=== PATIENT | female | born 1975 | race Caucasian/White ===

== ENCOUNTER → 2017-04-08 | Outpatient (CLI) | payer BC ==
[2015-07-03 13:21] VITALS: BP 160/91
[~2017-04-08] MED LIST: ABILIFY 10MG TA10 MG PO; ALBUTEROL2.5 MG/3 M IH; CEFTIN250 M1 PO; CITALOPRAM40 MG PO; LITHIUM 30300 MG/CAP PO; NORCO 325 MG-51 TAB PO; TUSS PO; ZITHROMAX 250M250 MG PO
== END ==
LOC: LAB 14:24 → RAD 14:24
DX: R05 Cough (principal); R06.09 Other forms of dyspnea

== ENCOUNTER → 2017-09-13 | Outpatient (CLI) | payer BC ==
[2015-07-03 13:21] VITALS: BP 160/91
[2017-09-13 09:04] LABS: EOS # 0.2 (0.04-0.40); HEMATOCRIT 41.9 % (37.0-47.0); HEMOGLOBIN 13.7 g/dL (12.5-16.0); LYMPH# 1.9 (1.50-4.00); MEAN CELL VOLUME 86 fl (78-100); MEAN CORPUSCULAR HEMOGLOBIN 28 pg (27-31); MEAN CORPUSCULAR HGB CONC 33 g/dL (33-37); MONO # 0.6 (0.20-0.80); NEU # 6.2 (1.40-6.50); PLATELET COUNT 311 K/mm3 (130-400); RED BLOOD COUNT 4.85 M/mm3 (4.10-5.30); RED CELL DISTRIBUTION WIDTH 13.2 % (11.5-14.5)
[2017-09-13 09:09] LABS: ALBUMIN 4.2 g/dL (3.5-5.0); BUN/CREATININE RATIO 14.2 (6.0-26.0); CALCIUM 8.8 mg/dL (8.4-10.2); POTASSIUM 4.7 mmol/L (3.6-5.0); TOTAL BILIRUBIN 0.6 mg/dL (0.2-1.3); TOTAL PROTEIN 7.5 g/dL (6.3-8.2)
[2017-09-13 10:49] LABS: URINE APPEARANCE CLOUDY; URINE COLOR YELLOW
[2017-09-13 10:50] LABS: URINE BILIRUBIN NEGATIVE (NEGATIVE); URINE BLOOD 50 ery/uL (NEGATIVE); URINE GLUCOSE NEGATIVE (NEGATIVE); URINE KETONE NEGATIVE (NEGATIVE); URINE NITRATE NEGATIVE (NEGATIVE); URINE PROTEIN(semi-quant) TRACE mg/dL (NEGATIVE); URINE UROBILINOGEN NORMAL (NORMAL)
[2017-09-13 10:52] LABS: URINE LEUKOCYTE ESTERASE TRACE (NEGATIVE)
== END ==
LOC: LAB 08:44
PROVIDERS: Nurse Practitioner Family
DX: R30.0 Dysuria (principal); R03.0 Elevated blood-pressure reading, without diagnosis of hypertension; Z88.1 Allergy status to other antibiotic agents

== ENCOUNTER → 2018-05-07 | Outpatient (CLI) | payer BC ==
[2015-07-03 13:21] VITALS: BP 160/91
[2018-05-07 14:44] LABS: EOS # 0.1 (0.04-0.40); EOS % 1.5 % (1.0-5.0); HEMATOCRIT 43.5 % (37.0-47.0); HEMOGLOBIN 13.8 g/dL (12.5-16.0); LYMPH# 2.5 (1.50-4.00); MEAN CELL VOLUME 86 fl (78-100); MEAN CORPUSCULAR HEMOGLOBIN 27 pg (27-31); MEAN CORPUSCULAR HGB CONC 32 g/dL (33-37); MEAN PLATELET VOLUME 10.3 fl (7.4-10.4); MONO # 0.9 (0.20-0.80); NEU # 5.6 (1.40-6.50); PLATELET COUNT 316 K/mm3 (130-400); RED BLOOD COUNT 5.09 M/mm3 (4.10-5.30); RED CELL DISTRIBUTION WIDTH 13.7 % (11.5-14.5); WHITE BLOOD COUNT 9.2 K/mm3 (4.8-10.8)
[2018-05-07 15:34] LABS: URINE APPEARANCE CLOUDY; URINE BILIRUBIN NEGATIVE (NEGATIVE); URINE BLOOD 250 ery/uL (NEGATIVE); URINE COLOR YELLOW; URINE GLUCOSE NEGATIVE (NEGATIVE); URINE KETONE NEGATIVE (NEGATIVE); URINE LEUKOCYTE ESTERASE 1+ (NEGATIVE); URINE NITRATE NEGATIVE (NEGATIVE); URINE PROTEIN(semi-quant) TRACE mg/dL (NEGATIVE); URINE UROBILINOGEN NORMAL (NORMAL)
[2018-05-07 15:38] LABS: ALBUMIN 4.3 g/dL (3.5-5.0); BUN/CREATININE RATIO 10.8 (6.0-26.0); CALCIUM 8.8 mg/dL (8.4-10.2); POTASSIUM 3.9 mmol/L (3.6-5.0); TOTAL BILIRUBIN 0.5 mg/dL (0.2-1.3); TOTAL PROTEIN 7.6 g/dL (6.3-8.2)
== END ==
LOC: LAB 14:23
PROVIDERS: Physician Assistant
DX: R10.11 Right upper quadrant pain (principal)

== ENCOUNTER → 2018-07-04 | Outpatient (CLI) | payer BC ==
[2015-07-03 13:21] VITALS: BP 160/91
== END ==
LOC: RAD 16:19
DX: M77.32 Calcaneal spur, left foot (principal); M77.31 Calcaneal spur, right foot

== ENCOUNTER → 2018-09-17 | Outpatient (CLI) | payer BC ==
[2015-07-03 13:21] VITALS: BP 160/91
[2018-09-17 09:42] LABS: EOS # 0.2 (0.04-0.40); HEMATOCRIT 43.8 % (37.0-47.0); LYMPH# 2.2 (1.50-4.00); MEAN CELL VOLUME 86 fl (78-100); MEAN CORPUSCULAR HEMOGLOBIN 27 pg (27-31); MEAN CORPUSCULAR HGB CONC 32 g/dL (33-37); MEAN PLATELET VOLUME 10.2 fl (7.4-10.4); MONO # 0.6 (0.20-0.80); NEU # 6.9 (1.40-6.50); PLATELET COUNT 328 K/mm3 (130-400); RED BLOOD COUNT 5.11 M/mm3 (4.10-5.30); RED CELL DISTRIBUTION WIDTH 13.8 % (11.5-14.5); WHITE BLOOD COUNT 9.9 K/mm3 (4.8-10.8)
[2018-09-17 09:46] LABS: URINE APPEARANCE CLOUDY; URINE BILIRUBIN NEGATIVE (NEGATIVE); URINE BLOOD 50 ery/uL (NEGATIVE); URINE COLOR YELLOW; URINE GLUCOSE NEGATIVE (NEGATIVE); URINE KETONE NEGATIVE (NEGATIVE); URINE LEUKOCYTE ESTERASE 1+ (NEGATIVE); URINE MUCUS PRESENT (NOT PRESENT); URINE NITRATE NEGATIVE (NEGATIVE); URINE PROTEIN(semi-quant) TRACE mg/dL (NEGATIVE); URINE UROBILINOGEN NORMAL (NORMAL)
[2018-09-17 09:48] LABS: ALBUMIN 4.7 g/dL (3.5-5.0); CALCIUM 9.5 mg/dL (8.4-10.2); TOTAL PROTEIN 8.2 g/dL (6.3-8.2)
== END ==
LOC: LAB 09:20
PROVIDERS: Physician Assistant
DX: T21.20XA Burn of second degree of trunk, unspecified site, initial encounter (principal); R35.0 Frequency of micturition; R63.1 Polydipsia; I10 Essential (primary) hypertension; E66.9 Obesity, unspecified; F98.8 Other specified behavioral and emotional disorders with onset usually occurring in childhood and adolescence

== ENCOUNTER → 2020-02-04 | Outpatient (CLI) | payer BC ==
[2015-07-03 13:21] VITALS: BP 160/91
[2020-02-04 15:44] LABS: EOS # 0.1 (0.04-0.40); EOS % 0.7 % (1.0-5.0); HEMATOCRIT 43.1 % (37.0-47.0); HEMOGLOBIN 13.7 g/dL (12.5-16.0); MEAN CELL VOLUME 90 fl (78-100); MEAN CORPUSCULAR HEMOGLOBIN 29 pg (27-31); MEAN CORPUSCULAR HGB CONC 32 g/dL (33-37); MONO # 1.1 (0.20-0.80); NEU # 8.3 (1.40-6.50); PLATELET COUNT 316 K/mm3 (130-400); RED BLOOD COUNT 4.77 M/mm3 (4.10-5.30); RED CELL DISTRIBUTION WIDTH 13.6 % (11.5-14.5); WHITE BLOOD COUNT 14.3 K/mm3 (4.8-10.8)
[2020-02-04 15:47] LABS: LYMPH# 4.8 (1.50-4.00)
[2020-02-04 15:50] LABS: POTASSIUM 3.7 mmol/L (3.5-5.1)
[2020-02-04 15:51] LABS: CALCIUM 8.9 mg/dL (8.3-10.5)
[2020-02-04 15:52] LABS: TOTAL PROTEIN 6.9 g/dL (6.4-8.3)
[2020-02-04 15:54] LABS: TOTAL BILIRUBIN 0.6 mg/dL (0.2-1.2)
== END ==
LOC: RAD 15:24
PROVIDERS: Physician Assistant
DX: J45.20 Mild intermittent asthma, uncomplicated (principal)
CPT/HCPCS: Q9967

== ENCOUNTER → 2020-03-22 | Outpatient (CLI) | payer BC ==
[2015-07-03 13:21] VITALS: BP 160/91
[2020-03-22 16:13] LABS: EOS # 0.2 (0.04-0.40); EOS % 1.7 % (1.0-5.0); HEMATOCRIT 42.5 % (37.0-47.0); HEMOGLOBIN 13.4 g/dL (12.5-16.0); LYMPH# 1.9 (1.50-4.00); MEAN CELL VOLUME 90 fl (78-100); MEAN CORPUSCULAR HEMOGLOBIN 28 pg (27-31); MEAN CORPUSCULAR HGB CONC 32 g/dL (33-37); MONO # 0.7 (0.20-0.80); NEU # 6.7 (1.40-6.50); PLATELET COUNT 324 K/mm3 (130-400); RED BLOOD COUNT 4.72 M/mm3 (4.10-5.30); RED CELL DISTRIBUTION WIDTH 13.2 % (11.5-14.5); WHITE BLOOD COUNT 9.5 K/mm3 (4.8-10.8)
== END ==
LOC: LAB 15:44
PROVIDERS: Internal Medicine Pulmonary Disease
DX: R05 Cough (principal)

== ENCOUNTER → 2020-04-27 | Outpatient (CLI) | payer BC ==
[2015-07-03 13:21] VITALS: BP 160/91
[2020-04-27 08:53] LABS: EOS # 0.1 (0.04-0.40); EOS % 1.6 % (1.0-5.0); HEMATOCRIT 40.1 % (37.0-47.0); HEMOGLOBIN 12.6 g/dL (12.5-16.0); MEAN CELL VOLUME 90 fl (78-100); MEAN CORPUSCULAR HEMOGLOBIN 28 pg (27-31); MEAN CORPUSCULAR HGB CONC 31 g/dL (33-37); MEAN PLATELET VOLUME 10.1 fl (7.4-10.4); MONO # 0.6 (0.20-0.80); NEU # 5.9 (1.40-6.50); PLATELET COUNT 305 K/mm3 (130-400); RED BLOOD COUNT 4.47 M/mm3 (4.10-5.30); WHITE BLOOD COUNT 8.6 K/mm3 (4.8-10.8)
[2020-04-27 08:57] LABS: ALBUMIN 3.9 g/dL (3.5-5.0)
[2020-04-27 09:00] LABS: TOTAL PROTEIN 7.5 g/dL (6.4-8.3)
[2020-04-27 09:01] LABS: TOTAL BILIRUBIN 0.6 mg/dL (0.2-1.2)
== END ==
LOC: LAB 08:31
PROVIDERS: Physician Assistant
DX: K90.41 Non-celiac gluten sensitivity (principal); K90.9 Intestinal malabsorption, unspecified; I10 Essential (primary) hypertension; K58.9 Irritable bowel syndrome, unspecified; E78.5 Hyperlipidemia, unspecified; J45.20 Mild intermittent asthma, uncomplicated; R19.7 Diarrhea, unspecified; R21 Rash and other nonspecific skin eruption; Z83.49 Family history of other endocrine, nutritional and metabolic diseases

== ENCOUNTER → 2020-06-01 | Outpatient (CLI) | payer BC ==
[2015-07-03 13:21] VITALS: BP 160/91
== END ==
LOC: VAS 15:38 → RAD 15:45
DX: R06.02 Shortness of breath (principal)

== ENCOUNTER → 2020-07-05 | Outpatient (CLI) | payer BC ==
[2015-07-03 13:21] VITALS: BP 160/91
== END ==
LOC: MAMMO 08:30
DX: Z01.419 Encounter for gynecological examination (general) (routine) without abnormal findings (principal); Z12.31 Encounter for screening mammogram for malignant neoplasm of breast

== ENCOUNTER → 2020-11-07 | Outpatient (CLI) | payer BC ==
[2015-07-03 13:21] VITALS: BP 160/91
[~2020-11-07] MED LIST changes: +ADDERALL 20 MG20 MG PO; +ASPIRIN E.C. 8181 MG; +ATROVENT NASAL15 ML NS; +COZAAR25 M1 PO; +DUPIXENT P300 MG/2 M SQ; +DYAZIDE 37.5-21 EACH PO; +EPINEPHRIN0.15 MG/01 IJ; +FLAGYL500 M1 PO; +FLUTICASON0.05 MG/AC NS; +NORCO 325 MG-51 TA1 PO; +PRILOSEC 20MG20 MG PO; +PROAIR HFA0.09 MG/AC IH; +QVAR REDIHALE10.6 G1 IH; +SINGULAIR 110 MG/TAB PO; +SYMBICORT1 AE3 IH; +VALIUM 5MG T5 MG/TAB PO; +WELLBUTRIN XL150 M2 PO
== END ==
LOC: RAD 17:56
DX: M25.561 Pain in right knee (principal)

== ENCOUNTER 2020-11-16 11:52 | Emergency (ER) | payer BC ==
[~2020-11-16] VITALS: Ht 160 cm; Wt 97.3 kg
[~2020-11-16 11:52] MED LIST changes: -ADDERALL 20 MG20 MG PO; -ASPIRIN E.C. 8181 MG; -ATROVENT NASAL15 ML NS; -COZAAR25 M1 PO; -DUPIXENT P300 MG/2 M SQ; -DYAZIDE 37.5-21 EACH PO; -EPINEPHRIN0.15 MG/01 IJ; -FLAGYL500 M1 PO; -FLUTICASON0.05 MG/AC NS; -NORCO 325 MG-51 TA1 PO; -PRILOSEC 20MG20 MG PO; -PROAIR HFA0.09 MG/AC IH; -QVAR REDIHALE10.6 G1 IH; -SINGULAIR 110 MG/TAB PO; -SYMBICORT1 AE3 IH; -VALIUM 5MG T5 MG/TAB PO; -WELLBUTRIN XL150 M2 PO
[2020-11-16] MEDS ORDERED: ADDERALL 20 MG20 MG PO (13:04)
[2020-11-16] MEDS ORDERED: ALBUTEROL2.5 MG/3 M IH (13:05)
[2020-11-16] MEDS ORDERED: PROAIR HFA0.09 MG/AC IH (13:05)
[2020-11-16] MEDS ORDERED: FLUTICASON0.05 MG/AC NS (13:06)
[2020-11-16] MEDS ORDERED: ASPIRIN E.C. 8181 MG (13:07)
[2020-11-16] MEDS ORDERED: WELLBUTRIN XL150 M2 PO (13:07)
[2020-11-16] MEDS ORDERED: DYAZIDE 37.5-21 EACH PO (13:08)
[2020-11-16] MEDS ORDERED: DUPIXENT P300 MG/2 M SQ (13:08)
[2020-11-16] MEDS ORDERED: EPINEPHRIN0.15 MG/01 IJ (13:10)
[2020-11-16] MEDS ORDERED: NORCO 325 MG-51 TA1 PO (13:11)
[2020-11-16 13:12] LABS: EOS # 0.1 (0.04-0.40); EOS % 0.7 % (1.0-5.0); HEMATOCRIT 45.8 % (37.0-47.0); HEMOGLOBIN 14.6 g/dL (12.5-16.0); LYMPH# 1.7 (1.50-4.00); MEAN CELL VOLUME 87 fl (78-100); MEAN CORPUSCULAR HEMOGLOBIN 28 pg (27-31); MEAN CORPUSCULAR HGB CONC 32 g/dL (33-37); MEAN PLATELET VOLUME 10.5 fl (7.4-10.4); MONO # 0.8 (0.20-0.80); NEU # 7.8 (1.40-6.50); PLATELET COUNT 310 K/mm3 (130-400); RED BLOOD COUNT 5.28 M/mm3 (4.10-5.30); RED CELL DISTRIBUTION WIDTH 13.4 % (11.5-14.5); WHITE BLOOD COUNT 10.4 K/mm3 (4.8-10.8)
[2020-11-16] MEDS ORDERED: ATROVENT NASAL15 ML NS (13:12)
[2020-11-16] MEDS ORDERED: PRILOSEC 20MG20 MG PO (13:13)
[2020-11-16] MEDS ORDERED: QVAR REDIHALE10.6 G1 IH (13:13)
[2020-11-16] MEDS ORDERED: SINGULAIR 110 MG/TAB PO (13:13)
[2020-11-16] MEDS ORDERED: COZAAR25 M1 PO (13:13)
[2020-11-16] MEDS ORDERED: SYMBICORT1 AE3 IH (13:14)
[2020-11-16] MEDS ORDERED: VALIUM 5MG T5 MG/TAB PO (13:14)
[2020-11-16 13:21] LABS: ALBUMIN 4.5 g/dL (3.5-5.0); POTASSIUM 3.9 mmol/L (3.5-5.1); SODIUM 138 mmol/L (136-145)
[2020-11-16 13:23] LABS: CALCIUM 9.2 mg/dL (8.3-10.5)
[2020-11-16 13:24] LABS: GLUCOSE 108 mg/dL (65-105); TOTAL PROTEIN 8.3 g/dL (6.4-8.3)
[2020-11-16 13:25] LABS: CARBON DIOXIDE 23 mmol/L (22-29)
[2020-11-16 13:26] LABS: TOTAL BILIRUBIN 1.2 mg/dL (0.2-1.2)
[2020-11-16 13:29] LABS: AST-SGOT 13 U/L (5-34)
[2020-11-16 13:30] LABS: ALT/SGPT 20 U/L (0-55)
[2020-11-16 13:36] LABS: D-DIMER 0.24 mg/L FEU (0.15-0.50)
[2020-11-16 13:54] LABS: TROPONIN-I < 0.03 ng/mL (<0.030)
[2020-11-16 14:43] LABS: PH-URINE 6.5 (5.0 - 8.0); URINE APPEARANCE CLOUDY; URINE BILIRUBIN NEGATIVE (NEGATIVE); URINE BLOOD 50 ery/uL (NEGATIVE); URINE COLOR YELLOW; URINE GLUCOSE NEGATIVE (NEGATIVE); URINE KETONE NEGATIVE (NEGATIVE); URINE LEUKOCYTE ESTERASE 1+ (NEGATIVE); URINE NITRATE NEGATIVE (NEGATIVE); URINE PROTEIN(semi-quant) TRACE mg/dL (NEGATIVE); URINE UROBILINOGEN NORMAL (NORMAL)
[2020-11-16 14:44] LABS: URINE MUCUS PRESENT (NOT PRESENT)
[2020-11-16] MEDS ORDERED: FLAGYL500 M1 PO (15:50)
[2020-11-16 16:15] VITALS: BP 146/86
== END 2020-11-16 16:15 | disposition home or self-care (01) ==
LOC: ED 11:52
PROVIDERS: Physician Assistant
DX: F41.9 Anxiety disorder, unspecified (principal); N76.0 Acute vaginitis; I10 Essential (primary) hypertension; J45.909 Unspecified asthma, uncomplicated; F32.9 Major depressive disorder, single episode, unspecified; F90.9 Attention-deficit hyperactivity disorder, unspecified type; Z88.8 Allergy status to other drugs, medicaments and biological substances; Z79.51 Long term (current) use of inhaled steroids; Z79.82 Long term (current) use of aspirin
CPT/HCPCS: Q9967

== ENCOUNTER → 2021-08-09 | Outpatient (CLI) | payer BC ==
[~2021-08-09] MED LIST changes: +ADDERALL 20 MG20 MG PO; +ASPIRIN E.C. 8181 MG; +ATROVENT NASAL15 ML NS; +COZAAR25 M1 PO; +DUPIXENT P300 MG/2 M SQ; +DYAZIDE 37.5-21 EACH PO; +EPINEPHRIN0.15 MG/01 IJ; +FLAGYL500 M1 PO; +FLUTICASON0.05 MG/AC NS; +NORCO 325 MG-51 TA1 PO; +PRILOSEC 20MG20 MG PO; +PROAIR HFA0.09 MG/AC IH; +QVAR REDIHALE10.6 G1 IH; +SINGULAIR 110 MG/TAB PO; +SYMBICORT1 AE3 IH; +VALIUM 5MG T5 MG/TAB PO; +WELLBUTRIN XL150 M2 PO
== END ==
LOC: LAB 16:45
DX: Z20.822 Contact with and (suspected) exposure to COVID-19 (principal)

== ENCOUNTER → 2021-11-29 | Outpatient (CLI) | payer BC | LOC: RAD 08:42 | DX: K76.0 Fatty (change of) liver, not elsewhere classified (principal) ==

== ENCOUNTER → 2021-12-22 | Outpatient (CLI) | payer BC ==
[2021-12-22 14:23] LABS: BASO # 0.05 K/mm3 (0.02-0.10); EOS # 0.15 K/mm3 (0.04-0.40); EOS % 1.2 % (1.0-5.0); HEMATOCRIT 40.7 % (37.0-47.0); HEMOGLOBIN 13.1 g/dL (12.5-16.0); LYMPH# 2.08 K/mm3 (1.50-4.00); MEAN CELL VOLUME 89 fl (78-100); MEAN CORPUSCULAR HEMOGLOBIN 29 pg (27-31); MEAN CORPUSCULAR HGB CONC 32 g/dL (33-37); MEAN PLATELET VOLUME 9.8 fl (7.4-10.4); MONO # 0.68 K/mm3 (0.20-0.80); PLATELET COUNT 357 K/mm3 (130-400); RED BLOOD COUNT 4.59 M/mm3 (4.10-5.30); WHITE BLOOD COUNT 12.2 K/mm3 (4.8-10.8)
== END ==
LOC: LAB 13:58
PROVIDERS: Internal Medicine Pulmonary Disease
DX: R05.3 Chronic cough (principal)

== ENCOUNTER → 2022-04-19 | Outpatient (CLI) | payer BC ==
[2022-04-19 10:14] LABS: BASO # 0.02 K/mm3 (0.02-0.10); EOS # 0.14 K/mm3 (0.04-0.40); EOS % 1.8 % (1.0-5.0); HEMATOCRIT 39.3 % (37.0-47.0); HEMOGLOBIN 12.5 g/dL (12.5-16.0); LYMPH# 2.01 K/mm3 (1.50-4.00); MEAN CELL VOLUME 88 fl (78-100); MEAN CORPUSCULAR HEMOGLOBIN 28 pg (27-31); MEAN CORPUSCULAR HGB CONC 32 g/dL (33-37); MONO # 0.61 K/mm3 (0.20-0.80); NEU # 4.87 K/mm3 (1.40-6.50); PLATELET COUNT 299 K/mm3 (130-400); RED BLOOD COUNT 4.48 M/mm3 (4.10-5.30); RED CELL DISTRIBUTION WIDTH 13.2 % (11.5-14.5); WHITE BLOOD COUNT 7.7 K/mm3 (4.8-10.8)
[2022-04-19 10:29] LABS: ALBUMIN 4.1 g/dL (3.5-5.0); CALCIUM 9.2 mg/dL (8.3-10.5); POTASSIUM 3.9 mmol/L (3.5-5.1); TOTAL PROTEIN 7.2 g/dL (6.4-8.3)
[2022-04-19 10:31] LABS: TOTAL BILIRUBIN 0.6 mg/dL (0.2-1.2)
[2022-04-20 02:42] LABS: FOLLICLE STIMULATING HORMONE 20.4 mIU/mL (()); LUTENIZING HORMONE 29.9 mIU/mL (()); PROGESTERONE 0.1 ng/mL (())
== END ==
LOC: LAB 09:24
PROVIDERS: Physician Assistant
DX: Z13.220 Encounter for screening for lipoid disorders (principal); Z13.29 Encounter for screening for other suspected endocrine disorder; T78.1XXA Other adverse food reactions, not elsewhere classified, initial encounter; E89.41 Symptomatic postprocedural ovarian failure; N89.8 Other specified noninflammatory disorders of vagina; K90.9 Intestinal malabsorption, unspecified; R45.4 Irritability and anger; R68.82 Decreased libido

== ENCOUNTER → 2023-07-24 | Outpatient (CLI) | payer BC ==
[~2023-07-24] MED LIST changes: +ALPRAZOLAM0.5 MG PO; +CARDIZEM CD180 M1 PO; +CHOLESTYRAMINE P4 GM PO; +COZAAR100 MG PO; -COZAAR25 M1 PO; +DESVENLAFAXINE50 MG PO; -DYAZIDE 37.5-21 EACH PO; +HYDROXYZINE HCL25 M1 PO; +IPRATROPIUM BROM3 M1 IH; +LEVOFLOXACIN750 MG PO; +METFORMIN HYD1000 MG PO; +PREDNISONE20 M1 PO; -PROAIR HFA0.09 MG/AC IH; +PROVENTIL0.09 MG/A1 IH; +TIZANIDINE HYDRO2 M1 PO; +TRELEGY ELLIPT1 EAC1 IH; +TRIAMTERENE AND1 CAP PO; +VITAMIN D3125 MC1 PO
== END ==
LOC: LAB 16:06
DX: T23.002D Burn of unspecified degree of left hand, unspecified site, subsequent encounter (principal); G89.29 Other chronic pain; R53.83 Other fatigue; M79.7 Fibromyalgia; Z90.710 Acquired absence of both cervix and uterus; E88.810 Metabolic syndrome; M25.50 Pain in unspecified joint; K90.9 Intestinal malabsorption, unspecified

== ENCOUNTER → 2023-09-12 | Outpatient (CLI) | payer BC | LOC: LAB 09:52 | DX: M54.50 Low back pain, unspecified (principal); K90.9 Intestinal malabsorption, unspecified; E55.9 Vitamin D deficiency, unspecified; E53.8 Deficiency of other specified B group vitamins; L29.9 Pruritus, unspecified ==

== ENCOUNTER → 2023-11-18 | Outpatient (CLI) | payer BC ==
[2023-11-18 15:49] LABS: CLUE CELLS NOT OBSERVED (Not Observd)
== END ==
LOC: LAB 15:00
PROVIDERS: Physician Assistant
DX: N76.0 Acute vaginitis (principal)
CPT/HCPCS: Q0111

== ENCOUNTER → 2023-12-26 | Outpatient (CLI) | payer BC | LOC: LAB 13:51 | DX: Z13.1 Encounter for screening for diabetes mellitus (principal); E53.8 Deficiency of other specified B group vitamins; E89.41 Symptomatic postprocedural ovarian failure; E88.810 Metabolic syndrome; K90.9 Intestinal malabsorption, unspecified; R53.83 Other fatigue ==

== ENCOUNTER 2024-03-08 23:15 | Emergency (ER) | payer BC ==
[~2024-03-08 23:15] MED LIST changes: +1/2 NS 1,000 ML IV ONE; +NS 1,000 ML IV ONE; +Ondansetron 4 MG/2 ML VIAL IV ONE; +Orphenadrine 60 MG/2ML AMP IV ONE
[2024-03-08] MEDS ORDERED: NS 60 ML IV ONE (23:53)
[2024-03-08] MEDS ORDERED: Iohexol 300 - 100 ML VIAL IV ONE (23:53)
== END 2024-03-09 03:45 | disposition home or self-care (01) ==
LOC: ED 23:15
DX: A08.39 Other viral enteritis (principal); E87.6 Hypokalemia
CPT/HCPCS: J2360; J2405; J7030; Q9967

== ENCOUNTER → 2024-05-21 | Outpatient (CLI) | payer BC ==
[~2024-05-21] MED LIST changes: -1/2 NS 1,000 ML IV ONE; -NS 1,000 ML IV ONE; -Ondansetron 4 MG/2 ML VIAL IV ONE; -Orphenadrine 60 MG/2ML AMP IV ONE
[2024-05-21 09:59] LABS: BASO # 0.03 K/mm3 (0.02-0.10); EOS # 0.11 K/mm3 (0.04-0.40); EOS % 1.4 % (1.0-5.0); HEMATOCRIT 41.2 % (37.0-47.0); HEMOGLOBIN 12.9 g/dL (12.5-16.0); LYMPH# 1.82 K/mm3 (1.50-4.00); MEAN CELL VOLUME 88 fl (78-100); MEAN CORPUSCULAR HEMOGLOBIN 28 pg (27-31); MEAN CORPUSCULAR HGB CONC 31 g/dL (33-37); MEAN PLATELET VOLUME 9.4 fl (7.4-10.4); MONO # 0.53 K/mm3 (0.20-0.80); NEU # 5.58 K/mm3 (1.40-6.50); PLATELET COUNT 294 K/mm3 (130-400); RED BLOOD COUNT 4.66 M/mm3 (4.10-5.30); RED CELL DISTRIBUTION WIDTH 13.4 % (11.5-14.5); WHITE BLOOD COUNT 8.1 K/mm3 (4.8-10.8)
[2024-05-21 10:11] LABS: CALCIUM 9.3 mg/dL (8.3-10.5)
[2024-05-21 10:12] LABS: TOTAL PROTEIN 7.5 g/dL (6.4-8.3)
[2024-05-21 10:14] LABS: TOTAL BILIRUBIN 0.4 mg/dL (0.2-1.2)
== END ==
LOC: LAB 09:47
PROVIDERS: Physician Assistant
DX: Z13.29 Encounter for screening for other suspected endocrine disorder (principal); I10 Essential (primary) hypertension; E88.810 Metabolic syndrome; K90.9 Intestinal malabsorption, unspecified; E78.5 Hyperlipidemia, unspecified

== ENCOUNTER 2024-07-22 08:00 | Outpatient (RCR) | payer BC | END 2024-08-13 | disposition home or self-care (01) | LOC: OT | DX: M79.642 Pain in left hand (principal); Z87.828 Personal history of other (healed) physical injury and trauma; Z91.81 History of falling ==

== ENCOUNTER → 2024-09-09 | Outpatient (CLI) | payer BC | LOC: MAMMO 09:09 | DX: Z12.31 Encounter for screening mammogram for malignant neoplasm of breast (principal) ==

== ENCOUNTER → 2025-01-26 | Outpatient (CLI) | payer BC ==
[~2025-01-26] MED LIST changes: +DILT-XR120 MG PO; +ONDANSETRON HYDR4 MG PO; +PHENTERMINE H37.5 M2 PO; +RT ADVAIR HFA 2312 G IH
[2025-01-26 15:10] LABS: CALCIUM 8.9 mg/dL (8.3-10.5)
== END ==
LOC: LAB 14:39
PROVIDERS: Physician Assistant
DX: E87.6 Hypokalemia (principal)